=== PATIENT | male | born 1980 | race Caucasian/White ===

== ENCOUNTER 2016-03-22 | Emergency (ER) | payer MEDICAID | END 2016-03-22 11:38 | disposition home or self-care (01) ==

== ENCOUNTER 2016-07-07 20:32 | Observation (INO) | payer MEDICAID ==
[2016-07-07] MEDS ORDERED: SODIUM CHLORIDE 0.9% 1,000 ML IV ONE ×2 (20:52→21:11)
[2016-07-07] MEDS ORDERED: ACETAMINOPHEN 325 MG TABLET PO STA (20:52)
[2016-07-07] MEDS ORDERED: INSULIN REGULAR HUMAN 100 UNIT/1 ML 10 ML MDV IVP STA (20:53)
[2016-07-07] MEDS ORDERED: ACETAMINOPHEN 500 MG TABLET PO ONE (20:59)
[2016-07-07] MEDS ORDERED: INSULIN REGULAR HUMAN 100 UNIT/1 ML 10 ML MDV ONE (20:59)
[2016-07-07] MEDS ORDERED: PROPRANOLOL 10 MG TABLET PO SCH (22:00)
[2016-07-07] MEDS ORDERED: PROPRANOLOL 40 MG TABLET PO ONE (22:10)
[2016-07-07] MEDS ORDERED: VANCOMYCIN INJ 1.5 GM in SODIUM CHLORIDE 0.9% 500 ML IV STA (22:17)
[2016-07-07] MEDS ORDERED: VANCOMYCIN 500 MG VIAL ONE (22:23)
[2016-07-07] MEDS ORDERED: VANCOMYCIN 1 GM VIAL ONE (22:23)
[2016-07-07] MEDS ORDERED: methIMAzole 5 MG TABLET PO SCH (23:00)
[2016-07-07] MEDS ORDERED: PROCHLORPERAZINE 10 MG/2 ML VIAL IVP PRN (23:42)
[2016-07-07] MEDS ORDERED: ONDANSETRON 4 MG/2 ML VIAL IVP PRN (23:42)
[2016-07-07] MEDS ORDERED: IBUPROFEN 600 MG TABLET PO PRN (23:42)
[2016-07-07] MEDS ORDERED: ZOLPIDEM 5 MG TABLET PO PRN (23:42)
[2016-07-07] MEDS ORDERED: ACETAMINOPHEN 325 MG TABLET PO PRN (23:42)
[2016-07-07] MEDS ORDERED: oxyCODONE 5 MG TABLET PO PRN ×2 (23:42)
[2016-07-07] MEDS ORDERED: SODIUM CHLORIDE FLUSH 0.9% 10 ML SYRINGE IVP PRN (23:42)
[2016-07-08] MEDS: SODIUM CHLORIDE 0.9% 1,000 ML IV SCH ×3 (00:34→17:35)
[2016-07-08] MEDS ORDERED: MAGNESIUM SULFATE 2 GRAM 50 ML IV ONE (03:41)
[2016-07-08] MEDS: SODIUM CHLORIDE FLUSH 0.9% 10 ML SYRINGE IVP SCH ×2 (04:30→13:17)
[2016-07-08] MEDS ORDERED: LEVOTHYROXINE 100 MCG TABLET PO SCH (07:00)
[2016-07-08] MEDS ORDERED: PANTOPRAZOLE 40 MG TABLET PO SCH (07:00)
[2016-07-08] MEDS: INSULIN ASPART 300 UNIT/3 ML PEN SUBQ SCH ×2 (08:24→11:34)
[2016-07-08] MEDS ORDERED: HYDROCORTISONE 10 MG TABLET PO SCH (09:00)
[2016-07-08] MEDS ORDERED: POLYETHYLENE GLYCOL 3350 17 GM PACKET PO SCH (09:00)
[2016-07-08] MEDS ORDERED: ENOXAPARIN 40 MG/0.4 ML SYRINGE SUBQ SCH (09:00)
[2016-07-08] MEDS ORDERED: INSULIN GLARGINE 300 UNIT/3 ML PEN SUBQ SCH (09:00)
[2016-07-08] MEDS ORDERED: ACETAMINOPHEN 325 MG TABLET PO PRN (11:42)
[2016-07-08] MEDS ORDERED: CHOLECALCIFEROL 1,000 UNIT TABLET PO SCH (14:00)
[2016-07-08] MEDS ORDERED: FLUTICASONE NASAL SPRAY NAS PRN (14:51)
[2016-07-08] MEDS ORDERED: DEXAMETHASONE 10 MG/ML VIAL IVP ONE (15:16)
[2016-07-08] MEDS ORDERED: SODIUM CHLORIDE 0.9% 1,000 ML IV ONE (15:16)
[2016-07-08] MEDS ORDERED: DEXAMETHASONE 4 MG/ML VIAL IVP ONE (16:00)
[2016-07-08] MEDS ORDERED: GLIMEPIRIDE 2 MG TABLET PO SCH (17:00)
[2016-07-08] MEDS ORDERED: metFORMIN 500 MG TABLET PO SCH (17:00)
[2016-07-08] MEDS ORDERED: INSULIN ASPART 300 UNIT/3 ML PEN SUBQ SCH (17:00)
[2016-07-08] MEDS ORDERED: DESMOPRESSIN NAS SCH (21:00)
== END 2016-07-08 19:02 | disposition home or self-care (01) ==
DX: K52.9 Noninfective gastroenteritis and colitis, unspecified (principal); E11.65 Type 2 diabetes mellitus with hyperglycemia; E03.9 Hypothyroidism, unspecified; E27.1 Primary adrenocortical insufficiency; Z79.4 Long term (current) use of insulin; E66.01 Morbid (severe) obesity due to excess calories; Z68.41 Body mass index [BMI] 40.0-44.9, adult; Z79.52 Long term (current) use of systemic steroids
CPT/HCPCS: 36415; 71010; 80053; 81001; 82009; 82533; 82803; 83036; 83605; 83615; 83690; 83735; 83880; 84100; 84436; 84439; 84443; 84480; 84481; 84484; 85025; 85610; 85651; 86038; 86140; 86160; 86225; 86235; 86308; 86430; 87040; 87493; 93005; 93010; 96361; 96365; 96367; 96372; 96375; 99284; 99285; A9270; G0378; J1650; J1815; J3370

== ENCOUNTER 2017-08-31 22:57 | Emergency (ER) | payer MEDICAID ==
[2017-08-31] MEDS ORDERED: DEXAMETHASONE 10 MG/ML VIAL IVP STA (23:25)
[2017-08-31] MEDS ORDERED: SODIUM CHLORIDE 0.9% 1,000 ML IV STA (23:25)
--- NOTE | 2017-08-31 23:25 | ED Physician Documentation ---
PD HPI NVD - Stated complaint Stated Complaint: FARHANA/VOM - Chief complaint Chief Complaint: Abd Pain - History obtained from History obtained from: Patient - History of Present Illness Timing - onset: Yesterday Timing - details: Gradual onset, Intermittant Pain level now: 5 Associated symptoms: Abdominal pain (minimal right-sided intermittent cramping) . No: Fever Contributing factors: Diabetes Improved by: Other Worsened by: Other (no exacerbating factors) Similar symptoms before: Has not had sx before Recently seen: Not recently seen - Additonal information Additional information: c/o diarrhea x 24 hours, also developed nausea and vomiting tonight Review of Systems Constitutional: denies: Fever, Chills, Sweats Cardiac: reports: Reviewed and negative Respiratory: reports: Reviewed and negative GI: reports: Nausea, Vomiting, Diarrhea. denies: Abdominal Pain : denies: Dysuria, Frequency Neurologic: reports: Generalized weakness PD PAST MEDICAL HISTORY - Past Medical History Cardiovascular: None Endocrine/Autoimmune: Type 2 diabetes GI: None : None HEENT: None Psych: None Musculoskeletal: None Derm: None - Past Surgical History Past Surgical History: No General: Appendectomy HEENT: Tonsil/Adenoidectomy - Present Medications Home Medications: Ambulatory Orders Medication Instructions Recorded Confirmed Cholecalciferol (Vitamin D3) 3,000 units PO DAILY 12/13/14 07/08/16 [Vitamin D3] Fluticasone [Flonase] 2 spray JUDY DAILY PRN 12/13/14 07/08/16 Glimepiride 4 mg PO BID 12/13/14 07/08/16 Hydrocortisone 40 mg PO DAILY 12/13/14 07/08/16 Levothyroxine [Synthroid] 200 mcg PO DAILY 12/13/14 07/08/16 metFORMIN [Glucophage] 500 mg PO 0800,1200,1700,2100 12/13/14 07/08/16 Insulin Glargine [Lantus Solostar] 10 unit SUBQ DAILY 03/09/16 07/08/16 Desmopressin (Nonrefrigerated) 1 - 2 sprays JUDY QPM 07/08/16 07/08/16 [Ddavp 0.01% Nasal [place]] Ondansetron Odt [Zofran] 4 - 8 mg TL Q6H PRN #20 tablet 07/08/16 Testosterone Cypionate 200 mg IM Q14D 07/08/16 07/08/16 [Depo-Testosterone] predniSONE [Prednisone] 20 mg PO DAILY #3 tablet 07/08/16 Diphenoxylate/Atropine [Lomotil] 1 each PO QID PRN #14 tablet 09/01/17 Ondansetron Odt [Zofran] 4 mg TL Q6H PRN #10 tablet 09/01/17 - Allergies Allergies/Adverse Reactions: Allergies Allergy/AdvReac Type Severity Reaction Status Date / Time codeine Allergy Severe Respiratory Verified 08/31/17 23:06 diazepam [From Valium] Allergy Severe Respiratory Verified 08/31/17 23:06 Penicillins Allergy Rash Verified 08/31/17 23:06 - Social History Does the pt smoke?: No Smoking Status: Never smoker Does the pt drink ETOH?: No Does the pt have substance abuse?: No - Immunizations Immunizations are current?: Yes - POLST Patient has POLST: No PD ED PE NORMAL - Vitals Vital signs reviewed: Yes - General General: Alert and oriented X 3, No acute distress, Well developed/nourished - HEENT HEENT: Moist mucous membranes - Cardiac Cardiac: RRR, No murmur - Respiratory Respiratory: No respiratory distress, Clear bilaterally - Abdomen Abdomen: Soft, Non tender - Derm Derm: Normal color, Warm and dry Results - Vitals Vitals: Vital Signs - 24 hr 08/31/17 08/31/17 09/01/17 22:59 23:51 00:26 Temperature 36.5 C Heart Rate 92 88 96 Respiratory 16 16 16 Rate Blood Pressure 91/55 L 106/74 115/81 H O2 Saturation 95 100 99 09/01/17 09/01/17 00:51 01:36 Temperature Heart Rate 93 92 Respiratory 16 18 Rate Blood Pressure 127/81 H 118/79 O2 Saturation 98 92 Oxygen O2 Source Room air - Labs Labs: Laboratory Tests 08/31/17 08/31/17 08/31/17 23:04 23:50 23:50 WBC 14.3 H RBC 5.52 Hgb 15.1 Hct 46.1 MCV 83.5 MCH 27.4 MCHC 32.8 RDW 14.4 Plt Count 312 MPV 8.0 Neut # (Auto) 10.7 H Lymph # (Auto) 2.4 [place] # (Auto) 1.0 Eos # (Auto) 0.2 Baso # (Auto) 0.1 Absolute Nucleated RBC 0.00 Nucleated RBC % 0.0 Sodium 143 Potassium 4.1 Chloride 105 Carbon Dioxide 30 Anion Gap 8.0 BUN 6 Creatinine 1.1 Estimated GFR (MDRD) 76 L Glucose 237 H POC Whole Bld Glucose 280 H Calcium 8.8 Total Bilirubin 0.5 AST 13 ALT 27 Alkaline Phosphatase 43 Total Protein 7.9 Albumin 4.0 Globulin 3.9 Albumin/Globulin Ratio 1.0 Lipase 56 H PD MEDICAL DECISION MAKING - ED course Complexity details: reviewed old records, reviewed results, re-evaluated patient , considered differential, d/w patient ED course: given IV dexamethasone 4mg, IV fluids (NS), lomotil. Blood tests reassuring. I ordered zofran, but by the time the nurse went to give this, patient reported his nausea had resolved and he declined the zofran. On reevaluation after tests resulted, patient appears to be in NAD and reports feeling well and ready for discharge home - Sepsis Event Vital Signs: Vital Signs - 24 hr 08/31/17 08/31/17 09/01/17 22:59 23:51 00:26 Temperature 36.5 C Heart Rate 92 88 96 Respiratory 16 16 16 Rate Blood Pressure 91/55 L 106/74 115/81 H O2 Saturation 95 100 99 09/01/17 09/01/17 00:51 01:36 Temperature Heart Rate 93 92 Respiratory 16 18 Rate Blood Pressure 127/81 H 118/79 O2 Saturation 98 92 Oxygen O2 Source Room air Departure - Departure Disposition: 01 Home, Self Care Clinical Impression: Adrenal insufficiency (Kendell's disease), Vomiting and diarrhea Condition: Good Instructions: ED Diet Vomiting Diarrhea, ED Vomiting Diarrhea Nonspecific Ad Follow-Up: Nate Dominguez MD [Primary Care Provider] - (2-3 days if symptoms persist. You should also contact your loading inspector's office and ask if they recommend increasing your dose of steroid for the next few days. ) Prescriptions: Diphenoxylate/Atropine [Lomotil] 1 each PO QID PRN #14 tablet PRN Reason: Diarrhea Ondansetron Odt [Zofran] 4 mg TL Q6H PRN #10 tablet PRN Reason: Nausea / Vomiting Discharge Date/Time: 09/01/17 01:45
[2017-09-01 00:19] LABS: BASOPHILS # (AUTO) 0.1 10^3/uL (0.0-0.1); BASOPHILS % (AUTO) 0.4 %; EOSINOPHILS # (AUTO) 0.2 10^3/uL (0.0-0.7); EOSINOPHILS % (AUTO) 1.5 %; HGB - HEMOGLOBIN 15.1 g/dL (14.0-18.0); LYMPHOCYTES # (AUTO) 2.4 10^3/uL (1.5-3.5); LYMPHOCYTES % (AUTO) 16.6 %; MEAN CORPUSCULAR HEMOGLOBIN 27.4 pg (27.0-31.0); MEAN CORPUSCULAR HGB CONC 32.8 g/dL (32.0-36.0); MEAN CORPUSCULAR VOLUME 83.5 fL (80.0-94.0); MONOCYTES % (AUTO) 6.6 %; NEUTROPHILS # (AUTO) 10.7 10^3/uL (1.5-6.6); NEUTROPHILS % (AUTO) 74.9 %; PLT - PLATELET COUNT 312 10^3/uL (130-450); RED BLOOD COUNT 5.52 10^6/uL (4.70-6.10); RED CELL DISTRIBUTION WIDTH 14.4 % (12.0-15.0); WHITE BLOOD COUNT 14.3 x10^3/uL (4.8-10.8)
[2017-09-01 00:26] LABS: BILIRUBIN,TOTAL 0.5 mg/dL (0.2-1.0); CALCIUM 8.8 mg/dL (8.5-10.3); CREATININE 1.1 mg/dL (0.6-1.2); TOTAL PROTEIN 7.9 g/dL (6.7-8.2)
[2017-09-01] MEDS ORDERED: ONDANSETRON 4 MG/2 ML VIAL IVP STA (00:29)
[2017-09-01] MEDS ORDERED: DIPHENOX/ATROPINE 2.5/0.025 MG TABLET PO STA (00:31)
[2017-09-01 01:38] VITALS: BP 118/79
== END 2017-09-01 01:45 | disposition home or self-care (01) ==
LOC: ED 22:57
DX: E27.1 Primary adrenocortical insufficiency (principal); R11.2 Nausea with vomiting, unspecified; R19.7 Diarrhea, unspecified; E11.9 Type 2 diabetes mellitus without complications; Z79.84 Long term (current) use of oral hypoglycemic drugs; Z79.4 Long term (current) use of insulin
CPT/HCPCS: 36415; 80053; 83690; 85025; 96361; 96374; 99283; A9270

== ENCOUNTER 2020-12-27 14:47 | Emergency (ER) | payer MEDICAID ==
[2020-12-27] MEDS ORDERED: IBUPROFEN 800 MG TABLET PO STA (15:08)
[2020-12-27] MEDS ORDERED: ONDANSETRON ODT 4 MG TABLET TL STA (15:09)
[2020-12-27 15:22] LABS: BASOPHILS # (AUTO) 0.1 10^3/uL (0.0-0.1); EOSINOPHILS # (AUTO) 0.1 10^3/uL (0.0-0.7); EOSINOPHILS % (AUTO) 1.4 %; HCT - HEMATOCRIT 46.5 % (42.0-52.0); HGB - HEMOGLOBIN 15.4 g/dL (14.0-18.0); LYMPHOCYTES # (AUTO) 1.7 10^3/uL (1.5-3.5); LYMPHOCYTES % (AUTO) 24.5 %; MEAN CORPUSCULAR HEMOGLOBIN 27.9 pg (27.0-31.0); MEAN CORPUSCULAR HGB CONC 33.1 g/dL (32.0-36.0); MEAN CORPUSCULAR VOLUME 84.4 fL (80.0-94.0); MEAN PLATELET VOLUME 8.7 fL (7.4-11.4); MONOCYTES # (AUTO) 0.7 10^3/uL (0.0-1.0); MONOCYTES % (AUTO) 9.5 %; NEUTROPHILS # (AUTO) 4.4 10^3/uL (1.5-6.6); NEUTROPHILS % (AUTO) 63.3 %; PLT - PLATELET COUNT 183 10^3/uL (130-450); RED BLOOD COUNT 5.51 10^6/uL (4.70-6.10); RED CELL DISTRIBUTION WIDTH 13.1 % (12.0-15.0); WHITE BLOOD COUNT 6.9 x10^3/uL (4.8-10.8)
[2020-12-27 15:35] LABS: ALBUMIN/GLOBULIN RATIO 1.3 (1.0-2.2); BILIRUBIN,TOTAL 1.1 mg/dL (0.2-1.0); CALCIUM 8.4 mg/dL (8.5-10.3); CREATININE 1.2 mg/dL (0.6-1.2); TOTAL PROTEIN 7.2 g/dL (6.7-8.2)
--- NOTE | 2020-12-27 16:05 | ED Physician Documentation ---
History of Present Illness - Stated complaint Stated Complaint: FATIGUED,NAUSEA,CHILLS - Chief complaint Chief Complaint: General - History obtained from History obtained from: Patient - Additonal information Additional information: 40-year-old gentleman with type 2 diabetes and adrenal insufficiency on twice daily hydrocortisone had a Pint Please booster yesterday at approximately 10 AM. During the afternoon hours yesterday started to feel profoundly fatigued, nauseous and developed fevers and chills. There are no associated respiratory symptoms such as cough, loss of taste or smell, or shortness of breath. Review of Systems Ten Systems: 10 systems reviewed and negative Constitutional: reports: Fever, Chills, Myalgias, Fatigue Nose: denies: Rhinorrhea / runny nose Throat: denies: Sore throat Respiratory: denies: Dyspnea, Cough PD PAST MEDICAL HISTORY - Past Medical History Cardiovascular: None Endocrine/Autoimmune: Type 2 diabetes GI: None : None HEENT: None Psych: None Musculoskeletal: None Derm: None - Past Surgical History Past Surgical History: No General: Appendectomy HEENT: Tonsil/Adenoidectomy - Present Medications Home Medications: Ambulatory Orders Medication Instructions Recorded Confirmed Cholecalciferol (Vitamin D3) 3,000 units PO DAILY 12/13/14 07/08/16 [Vitamin D3] Fluticasone [Flonase] 2 spray JUDY DAILY PRN 12/13/14 07/08/16 Glimepiride 4 mg PO BID 12/13/14 07/08/16 Hydrocortisone 40 mg PO DAILY 12/13/14 07/08/16 Levothyroxine [Synthroid] 200 mcg PO DAILY 12/13/14 07/08/16 metFORMIN [Glucophage] 500 mg PO 0800,1200,1700,2100 12/13/14 07/08/16 Insulin Glargine [Lantus Solostar] 10 unit SUBQ DAILY 03/09/16 07/08/16 Desmopressin (Nonrefrigerated) 1 - 2 sprays JUDY QPM 07/08/16 07/08/16 [Ddavp 0.01% Nasal [place]] Ondansetron Odt [Zofran] 4 - 8 mg TL Q6H PRN #20 tablet 07/08/16 Testosterone Cypionate 200 mg IM Q14D 07/08/16 07/08/16 [Depo-Testosterone] predniSONE [Prednisone] 20 mg PO DAILY #3 tablet 07/08/16 Diphenoxylate/Atropine [Lomotil] 1 each PO QID PRN #14 tablet 09/01/17 Ondansetron Odt [Zofran] 4 mg TL Q6H PRN #10 tablet 09/01/17 Ibuprofen [Motrin] 800 mg PO Q8H PRN #14 tablet 12/27/20 Ondansetron Odt [Zofran] 4 mg TL Q6H PRN #10 tablet 12/27/20 - Allergies Allergies/Adverse Reactions: Allergies Allergy/AdvReac Type Severity Reaction Status Date / Time codeine Allergy Severe Respiratory Verified 12/27/20 15:01 diazepam [From Valium] Allergy Severe Respiratory Verified 12/27/20 15:01 Penicillins Allergy Rash Verified 12/27/20 15:01 - Social History Does the pt smoke?: No Smoking Status: Never smoker Does the pt drink ETOH?: No Does the pt have substance abuse?: No - Immunizations Immunizations are current?: Yes - POLST Patient has POLST: No PD ED PE NORMAL - Vitals Vital signs reviewed: Yes - General General: Alert and oriented X 3, No acute distress, Other (Appears well and nontoxic) - HEENT HEENT: PERRL, Other (E version of the right thigh, chronic per patient) - Neck Neck: Supple, no meningeal sign, No bony TTP - Cardiac Cardiac: RRR, No murmur - Respiratory Respiratory: Clear bilaterally - Derm Derm: No rash - Neuro Neuro: Alert and oriented X 3, Normal speech Results - Vitals Vitals: Vital Signs - 24 hr 12/27/20 12/27/20 12/27/20 14:57 16:04 16:07 Temperature 39.0 C H 38.8 C H 38.8 C H Heart Rate 116 H 118 H 115 H Respiratory 16 22 Rate Blood Pressure 131/65 H O2 Saturation 94 94 95 Oxygen O2 Source Room air - Labs Labs: Laboratory Tests 12/27/20 12/27/20 12/27/20 15:19 15:19 15:19 WBC 6.9 RBC 5.51 Hgb 15.4 Hct 46.5 MCV 84.4 MCH 27.9 MCHC 33.1 RDW 13.1 Plt Count 183 MPV 8.7 Neut # (Auto) 4.4 Lymph # (Auto) 1.7 [place] # (Auto) 0.7 Eos # (Auto) 0.1 Baso # (Auto) 0.1 Absolute Nucleated RBC 0.00 Nucleated RBC % 0.0 Sodium 137 Potassium 4.0 Chloride 102 Carbon Dioxide 26 Anion Gap 9.0 BUN 12 Creatinine 1.2 Estimated GFR (MDRD) 67 L Glucose 162 H Lactic Acid 0.9 Calcium 8.4 L Total Bilirubin 1.1 H AST 26 ALT 34 Alkaline Phosphatase 45 Total Protein 7.2 Albumin 4.0 Globulin 3.2 Albumin/Globulin Ratio 1.3 PD MEDICAL DECISION MAKING - ED course ED course: 40-year-old gentleman with history of immunosuppression presents with fairly typical vaccine side effect reaction with typical timeframe and symptoms, nothing in the history or physical to suggest sepsis, or Covid. Feeling better after Motrin and Zofran here. Departure - Departure Disposition: 01 Home, Self Care Clinical Impression: Adrenal insufficiency (Mcleod's disease) Fever Qualifiers: Fever type: drug-induced Qualified Code(s): R50.2 - Drug induced fever Condition: Good Record reviewed to determine appropriate education?: Yes Instructions: ED Fever Control Prescriptions: Ibuprofen [Motrin] 800 mg PO Q8H PRN #14 tablet PRN Reason: PAIN &/OR FEVER Ondansetron Odt [Zofran] 4 mg TL Q6H PRN #10 tablet PRN Reason: Nausea / Vomiting Comments: You should be better within the next 12 to 24 hours. Return anytime if worsening or if not better in that timeframe.
[2020-12-27 16:36] VITALS: BP 105/60
== END 2020-12-27 16:37 | disposition home or self-care (01) ==
LOC: ED 14:47
DX: E27.1 Primary adrenocortical insufficiency (principal); R50.83 Postvaccination fever; T50.B95A Adverse effect of other viral vaccines, initial encounter; E11.9 Type 2 diabetes mellitus without complications; Z79.4 Long term (current) use of insulin; Z79.84 Long term (current) use of oral hypoglycemic drugs
CPT/HCPCS: 36415; 80053; 83605; 85025; 99283; A9270; Q0162

== ENCOUNTER 2022-11-01 19:14 | Emergency (ER) | payer MEDICAID ==
--- OUTSIDE RECORDS SUMMARY | 2022-11-01 20:04 | EXTERNAL MEDICAL SUMMARY RPT | Continuity of Care Document ---
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
[2022-11-01] MEDS ORDERED: NEOMYCIN/POLYMYX/HC OTIC DROPS LEFTEAR STA (20:42)
[2022-11-01] MEDS ORDERED: HYDROcod/ACET 5/325 Prepack 4 PO STA (20:42)
--- NOTE | 2022-11-01 20:44 | ED Physician Documentation ---
PD ANNI HEENT - Stated complaint Stated Complaint: LT EAR PX - Chief complaint Chief Complaint: Heent - History obtained from History obtained from: Patient (42-year-old gentleman with well-controlled type 2 diabetes has left ear pain starting yesterday and worse today. He is mild runny nose with it. It does not seem to affect his hearing. He is tried Advil without relief.) PD PAST MEDICAL HISTORY - Past Medical History Cardiovascular: None Endocrine/Autoimmune: Type 2 diabetes GI: None : None HEENT: None Psych: None Musculoskeletal: None Derm: None - Past Surgical History Past Surgical History: No General: Appendectomy HEENT: Tonsil/Adenoidectomy - Present Medications Home Medications: Ambulatory Orders Medication Instructions Recorded Confirmed Cholecalciferol (Vitamin D3) 3,000 units PO DAILY 12/13/14 07/08/16 [Vitamin D3] Fluticasone [Flonase] 2 spray JUDY DAILY PRN 12/13/14 07/08/16 Glimepiride 4 mg PO BID 12/13/14 07/08/16 Hydrocortisone 40 mg PO DAILY 12/13/14 07/08/16 Levothyroxine [Synthroid] 200 mcg PO DAILY 12/13/14 07/08/16 metFORMIN [Glucophage] 500 mg PO 0800,1200,1700,2100 12/13/14 07/08/16 Insulin Glargine [Lantus Solostar] 10 unit SUBQ DAILY 03/09/16 07/08/16 Desmopressin (Nonrefrigerated) 1 - 2 sprays JUDY QPM 07/08/16 07/08/16 [Ddavp 0.01% Nasal [place]] Ondansetron Odt [Zofran] 4 - 8 mg TL Q6H PRN #20 tablet 07/08/16 Testosterone Cypionate 200 mg IM Q14D 07/08/16 07/08/16 [Depo-Testosterone] predniSONE [Prednisone] 20 mg PO DAILY #3 tablet 07/08/16 Diphenoxylate/Atropine [Lomotil] 1 each PO QID PRN #14 tablet 09/01/17 Ondansetron Odt [Zofran] 4 mg TL Q6H PRN #10 tablet 09/01/17 Ibuprofen [Motrin] 800 mg PO Q8H PRN #14 tablet 12/27/20 Ondansetron Odt [Zofran] 4 mg TL Q6H PRN #10 tablet 12/27/20 HYDROcod/ACETAM 5/325 [[place] 5/325] 1 - 2 tab PO Q6H PRN #7 tablet 11/01/22 Neomycin/Polymyx/Hc Otic Drops 4 drops OT TID #1 each 11/01/22 [Cortisporin Ear Susp] - Allergies Allergies/Adverse Reactions: Allergies Allergy/AdvReac Type Severity Reaction Status Date / Time codeine Allergy Severe Respiratory Verified 11/01/22 19:34 diazepam [From Valium] Allergy Severe Respiratory Verified 11/01/22 19:34 Penicillins Allergy Rash Verified 11/01/22 19:34 - Social History Does the pt smoke?: No Smoking Status: Never smoker Does the pt drink ETOH?: No Does the pt have substance abuse?: No - Immunizations Immunizations are current?: Yes - POLST Patient has POLST: No PD ED PE NORMAL - Vitals Vital signs reviewed: Yes - General General: Alert and oriented X 3, No acute distress - HEENT HEENT: Other (Mild otitis externa on the left, TM normal, no shingles rash in the area. No mastoid tenderness.) - Neck Neck: Supple, no meningeal sign, No bony TTP - Neuro Neuro: Alert and oriented X 3, Normal speech Results - Vitals Vitals: Vital Signs - 24 hr 11/01/22 11/01/22 19:29 21:08 Temperature 37.0 C 37.0 C Heart Rate 72 70 Respiratory 15 16 Rate Blood Pressure 154/80 H 140/80 H O2 Saturation 97 98 Oxygen O2 Source Room air Departure - Departure Disposition: 01 Home, Self Care Clinical Impression: Left otitis externa Condition: Good Record reviewed to determine appropriate education?: Yes Instructions: ED Otitis Externa Prescriptions: Neomycin/Polymyx/Hc Otic Drops [Cortisporin Ear Susp] 4 drops OT TID #1 each HYDROcod/ACETAM 5/325 [[place] 5/325] 1 - 2 tab PO Q6H PRN #7 tablet PRN Reason: Pain Comments: I sent your prescription electronically to [facility] in [place]. Follow-up with your doctor in 2 to 3 days if not improving. Return for new or worsening symptoms. Forms: PCP List Discharge Date/Time: 11/01/22 21:00
[2022-11-01 21:13] VITALS: BP 140/80; O2SAT 98
== END 2022-11-01 21:00 | disposition home or self-care (01) ==
LOC: ED 19:14
DX: H60.92 Unspecified otitis externa, left ear (principal); E11.9 Type 2 diabetes mellitus without complications; Z79.899 Other long term (current) drug therapy; Z79.84 Long term (current) use of oral hypoglycemic drugs; Z79.4 Long term (current) use of insulin
CPT/HCPCS: 99282; 99283; A9270

== ENCOUNTER 2023-05-17 18:48 | Outpatient (CLI) | payer MEDICAID | END 2023-05-17 23:59 | disposition critical access hospital (66) | LOC: EMS 18:48 | DX: H92.02 Otalgia, left ear (principal); R11.2 Nausea with vomiting, unspecified; K08.89 Other specified disorders of teeth and supporting structures; R53.1 Weakness | CPT/HCPCS: A0425; A0427; A0999 ==

== ENCOUNTER 2023-05-17 19:08 | Emergency (ER) | payer MEDICAID ==
[2023-05-17 20:30] LABS: BASOPHILS # (AUTO) 0.1 10^3/uL (0.0-0.1); BASOPHILS % (AUTO) 0.6 %; EOSINOPHILS # (AUTO) 0.2 10^3/uL (0.0-0.7); EOSINOPHILS % (AUTO) 2.2 %; HCT - HEMATOCRIT 39.3 % (42.0-52.0); HGB - HEMOGLOBIN 13.4 g/dL (14.0-18.0); LYMPHOCYTES # (AUTO) 2.7 10^3/uL (1.5-3.5); LYMPHOCYTES % (AUTO) 28.7 %; MEAN CORPUSCULAR HEMOGLOBIN 28.4 pg (27.0-31.0); MEAN CORPUSCULAR HGB CONC 34.1 g/dL (32.0-36.0); MEAN CORPUSCULAR VOLUME 83.3 fL (80.0-94.0); MEAN PLATELET VOLUME 8.7 fL (7.4-11.4); MONOCYTES # (AUTO) 0.7 10^3/uL (0.0-1.0); NEUTROPHILS # (AUTO) 5.7 10^3/uL (1.5-6.6); NEUTROPHILS % (AUTO) 61.1 %; PLT - PLATELET COUNT 199 10^3/uL (130-450); RED BLOOD COUNT 4.72 10^6/uL (4.70-6.10); RED CELL DISTRIBUTION WIDTH 12.5 % (12.0-15.0); WHITE BLOOD COUNT 9.3 x10^3/uL (4.8-10.8)
[2023-05-17 20:30] LABS: CORONAVIRUS 229E-RESP PCR NOT DETECTED; CORONAVIRUS HKU1-RESP PCR NOT DETECTED; CORONAVIRUS NL63-RESP PCR NOT DETECTED; CORONAVIRUS OC43-RESP PCR NOT DETECTED; HUMAN METAPNEUMOVIRUS NOT DETECTED; INFLUENZA A- RESP PCR PANEL NOT DETECTED; RHINOVIRUS/ENTEROVIRUS NOT DETECTED; SARS-CoV-2 -RESP PCR PANEL NOT DETECTED
[2023-05-17 20:31] LABS: B. PARAPERTUSSIS- RESP PCR PAN NOT DETECTED; B. PERTUSSIS- RESP PCR PANEL NOT DETECTED; C. PNEUMONIAE- RESP PCR PANEL NOT DETECTED; INFLUENZA B - RESP PCR PANEL NOT DETECTED; M. PNEUMONIAE- RESP PCR PANEL NOT DETECTED; PARAINFLUENZA VIRUS 1 NOT DETECTED; PARAINFLUENZA VIRUS 2 NOT DETECTED; PARAINFLUENZA VIRUS 3 NOT DETECTED; PARAINFLUENZA VIRUS 4 NOT DETECTED; RSV- RESP PCR PANEL NOT DETECTED
[2023-05-17 20:38] LABS: ALBUMIN 4.1 g/dL (3.2-5.5); ALBUMIN/GLOBULIN RATIO 1.8 (1.0-2.2); ALKALINE PHOSPHATASE 31 IU/L (42-121); ALT ALANINE AMINOTRANSFERASE 18 IU/L (10-60); AST ASPARTATE AMINOTRANSFERASE 12 IU/L (10-42); BILIRUBIN,TOTAL 0.9 mg/dL (0.2-1.0); BUN - BLOOD UREA NITROGEN 8 mg/dL (6-20); CALCIUM 8.5 mg/dL (8.5-10.3); CARBON DIOXIDE - CO2 29 mmol/L (21-32); CHLORIDE 89 mmol/L (101-111); CREATININE 0.6 mg/dL (0.6-1.3); GFR - MDRD 148 (>89); GLUCOSE 99 mg/dL (74-104); LIPASE 26 U/L (11-82); POTASSIUM 3.4 mmol/L (3.5-4.5); SODIUM 123 mmol/L (135-145); TOTAL PROTEIN 6.4 g/dL (6.4-8.9)
--- NOTE | 2023-05-17 20:42 | ED Physician Documentation ---
History of Present Illness - Stated complaint Stated Complaint: N/V/TEETH PX - Chief complaint Chief Complaint: Abd Pain - History obtained from History obtained from: Patient - Additonal information Additional information: The patient comes to the emergency department chief complaint of jaw pain, nausea, and vomiting. He states that he was seen a couple of days ago and was started on antibiotics for what he was told was a left otitis media. He states he has a broken left mandibular molar and that the pain seemed to really localize more to the tooth, so he was concerned that it may actually be his tooth that was the source of the pain. However, he was then told by his dentist this morning that he is on the right antibiotics for that to and that he should just continue taking them. The patient had been feeling better but states his tooth pain seemed a little more prominent today. He states his face might have been slightly puffy on that side but has not noticed any swelling inside of his mouth. He denies any fevers or chills. He states he began to feel nauseated this morning and has been vomiting most of the day. No other complaints at this time. PD PAST MEDICAL HISTORY - Past Medical History Cardiovascular: None Endocrine/Autoimmune: Type 2 diabetes GI: None : None HEENT: None Psych: None Musculoskeletal: None Derm: None - Past Surgical History Past Surgical History: No General: Appendectomy HEENT: Tonsil/Adenoidectomy - Present Medications Home Medications: Ambulatory Orders Medication Instructions Recorded Confirmed Cholecalciferol (Vitamin D3) 3,000 units PO DAILY 12/13/14 07/08/16 [Vitamin D3] Fluticasone [Flonase] 2 spray JUDY DAILY PRN 12/13/14 07/08/16 Glimepiride 4 mg PO BID 12/13/14 07/08/16 Hydrocortisone 40 mg PO DAILY 12/13/14 07/08/16 Levothyroxine [Synthroid] 200 mcg PO DAILY 12/13/14 07/08/16 metFORMIN [Glucophage] 500 mg PO 0800,1200,1700,2100 12/13/14 07/08/16 Insulin Glargine [Lantus Solostar] 10 unit SUBQ DAILY 03/09/16 07/08/16 Desmopressin (Nonrefrigerated) 1 - 2 sprays JUDY QPM 04/27/17 04/27/17 [Ddavp 0.01% Nasal [place]] Ondansetron Odt [Zofran] 4 - 8 mg TL Q6H PRN #20 tablet 07/08/16 Testosterone Cypionate 200 mg IM Q14D 07/08/16 07/08/16 [Depo-Testosterone] predniSONE [Prednisone] 20 mg PO DAILY #3 tablet 07/08/16 Diphenoxylate/Atropine [Lomotil] 1 each PO QID PRN #14 tablet 09/01/17 Ondansetron Odt [Zofran] 4 mg TL Q6H PRN #10 tablet 09/01/17 Ibuprofen [Motrin] 800 mg PO Q8H PRN #14 tablet 12/27/20 Ondansetron Odt [Zofran] 4 mg TL Q6H PRN #10 tablet 12/27/20 HYDROcod/ACETAM 5/325 [[place] 5/325] 1 - 2 tab PO Q6H PRN #7 tablet 11/01/22 Neomycin/Polymyx/Hc Otic Drops 4 drops OT TID #1 each 11/01/22 [Cortisporin Ear Susp] Cefuroxime Axetil [Cefuroxime] 500 mg PO BID #20 tablet 05/15/23 HYDROcod/ACETAM 5/325 [[place] 5/325] 1 - 2 tablet PO Q6H PRN #14 tablet 05/17/23 Ondansetron Odt [Zofran] 4 mg TL Q6H PRN #14 tablet 05/17/23 - Allergies Allergies/Adverse Reactions: Allergies Allergy/AdvReac Type Severity Reaction Status Date / Time codeine Allergy Severe Respiratory Verified 05/17/23 19:11 diazepam [From Valium] Allergy Severe Respiratory Verified 05/17/23 19:11 Penicillins Allergy Rash Verified 05/17/23 19:11 - Social History Does the pt smoke?: No Smoking Status: Never smoker Does the pt drink ETOH?: No ETOH Use: None Does the pt have substance abuse?: No - Immunizations Immunizations are current?: Yes - POLST Patient has POLST: No PD ED PE NORMAL - Vitals Vital signs reviewed: Yes - General General: Alert and oriented X 3, No acute distress, Well developed/nourished - HEENT HEENT: Atraumatic, PERRL, EOMI, Moist mucous membranes, Other (Broken left mandibular molar without tenderness or edema of the surrounding gingiva or the buccal tissues adjacent. No obvious facial swelling. Some moderate erythema of the left external auditory canal without debris. No abnormalities of the tympanic membrane as visualized, though partially occlu) - Cardiac Cardiac: RRR, No murmur - Respiratory Respiratory: No respiratory distress, Clear bilaterally - Abdomen Abdomen: Soft, Non tender, Non distended - Derm Derm: Normal color, Warm and dry, No rash - Extremities Extremities: No deformity, No edema - Neuro Neuro: Alert and oriented X 3 - Psych Psych: Normal mood, Normal affect Results - Vitals Vitals: Vital Signs - 24 hr 05/17/23 05/17/23 05/17/23 19:11 21:17 22:16 Temperature 36.3 C L Heart Rate 77 77 74 Respiratory 16 20 12 Rate Blood Pressure 149/85 H 137/86 H 139/74 H O2 Saturation 99 96 99 Oxygen O2 Source Room air - Labs Labs: Laboratory Tests 05/17/23 05/17/23 05/17/23 18:30 20:15 20:15 WBC 9.3 RBC 4.72 Hgb 13.4 L Hct 39.3 L MCV 83.3 MCH 28.4 MCHC 34.1 RDW 12.5 Plt Count 199 MPV 8.7 Neut # (Auto) 5.7 Lymph # (Auto) 2.7 [place] # (Auto) 0.7 Eos # (Auto) 0.2 Baso # (Auto) 0.1 Absolute Nucleated RBC 0.00 Nucleated RBC % 0.0 Sodium 123 L Potassium 3.4 L Chloride 89 L Carbon Dioxide 29 Anion Gap 5.0 L BUN 8 Creatinine 0.6 Estimated GFR (MDRD) 148 Glucose 99 Calcium 8.5 Total Bilirubin 0.9 AST 12 ALT 18 Alkaline Phosphatase 31 L Troponin I High Sens < 2.3 L Total Protein 6.4 Albumin 4.1 Globulin 2.3 Albumin/Globulin Ratio 1.8 Lipase 26 Nasal Adenovirus (PCR) NOT DETECTED Nasal B. parapertussis DNA (PCR) NOT DETECTED Nasal Coronavir 229E PCR NOT DETECTED Nasal Coronavir HKU1 PCR NOT DETECTED Nasal Coronavir NL63 PCR NOT DETECTED Nasal Coronavir OC43 PCR NOT DETECTED Nasal Enterovir/Rhinovir PCR NOT DETECTED Nasal Influenza B PCR NOT DETECTED Nasal Influenza A PCR NOT DETECTED Nasal Parainfluen 1 PCR NOT DETECTED Nasal Parainfluen 2 PCR NOT DETECTED Nasal Parainfluen 3 PCR NOT DETECTED Nasal Parainfluen 4 PCR NOT DETECTED Nasal RSV (PCR) NOT DETECTED Nasal B.pertussis DNA PCR NOT DETECTED Nasal C.pneumoniae (PCR) NOT DETECTED Judy Human Metapneumo PCR NOT DETECTED Nasal M.pneumoniae (PCR) NOT DETECTED Nasal SARS-CoV-2 (PCR) NOT DETECTED PD Medical Decision Making - ED course Complexity details: reviewed results, re-evaluated patient, considered differential, d/w patient ED course: The patient was worked up with labs and treated symptomatically with IV fluids and Dilaudid. His nausea was already feeling better after receiving Zofran en route. The patient was given a liter of IV fluid and felt better. He was ambulatory in the emergency department I felt he was stable for discharge home. I have prescribed medication for pain and nausea for him and have encouraged him to continue his antibiotics for now. The patient does not have an obvious abscess that is spreading to the gingiva or beyond, but I have discussed with him the importance of dental follow-up for definitive care of his tooth. We have discussed the usual indications for return. Departure - Departure Disposition: 01 Home, Self Care Clinical Impression: Pain, dental Vomiting Qualifiers: Vomiting type: bilious vomiting Nausea presence: with nausea Qualified Code(s): R11.14 - Bilious vomiting Condition: Stable Instructions: ED Tooth Pain, ED Nausea Vomiting Prescriptions: HYDROcod/ACETAM 5/325 [[place] 5/325] 1 - 2 tablet PO Q6H PRN #14 tablet PRN Reason: Pain Ondansetron Odt [Zofran] 4 mg TL Q6H PRN #14 tablet PRN Reason: Nausea / Vomiting Comments: Prescriptions for pain and nausea medication been electronically transmitted to the [facility] pharmacy in [place]. Your sodium was a little low today, so please make sure that you are drinking some electrolyte drinks along with water. Please finish the antibiotic course if possible, to help with your dental infection. Please schedule follow-up appointment with the dentist for definitive care of your tooth. Forms: PCP List Discharge Date/Time: 05/17/23 22:17
[2023-05-17 20:45] LABS: TROPONIN I HIGH SENSITIVITY < 2.3 ng/L (2.3-19.7)
[2023-05-17] MEDS: HYDROmorphone 0.5 MG/0.5 ML SYRINGE IVP STA (21:13)
[2023-05-17] MEDS: SODIUM CHLORIDE 0.9% 1,000 ML IV STA (21:14)
[2023-05-17 22:18] VITALS: BP 139/74; O2SAT 99
== END 2023-05-17 22:17 | disposition home or self-care (01) ==
LOC: EDUNIT# → ED 19:08
DX: K08.89 Other specified disorders of teeth and supporting structures (principal); E11.9 Type 2 diabetes mellitus without complications; Z79.84 Long term (current) use of oral hypoglycemic drugs; Z79.4 Long term (current) use of insulin; Z79.899 Other long term (current) drug therapy
CPT/HCPCS: 36415; 80053; 83690; 84484; 85025; 87633; 96374; 99283; 99284; J1170